=== PATIENT | female | born 1930 | race Caucasian/White ===

== ENCOUNTER 2017-08-22 08:58 | Emergency (ER) | payer MEDICARE, MEDICAID ==
[2017-08-22 10:04] LABS: Troponin I 0.013 ng/mL (< 0.028)
[2017-08-22] MEDS ORDERED: Haloperidol Lactate 5 MG/ML VIAL ONE ×2 (10:48→10:53)
[2017-08-22 11:13] LABS: #Basophils 0.1 thou/uL (0.0-0.2); #Eosinphils 0.3 thou/uL (0.0-0.7); #Lymphocytes 2.6 thou/uL (1.20-3.40); #Monocytes 1.1 thou/uL (0.11-0.59); #Neutrophils 7.4 thou/uL (1.40-6.50); %Basophils 0.9 % (0.0-1.0); %Eosinophils 2.6 % (0.0-10.0); %Lymphocytes 22.6 % (21.0-51.0); %Monocytes 9.7 % (0.0-10.0); %Neutrophils 64.2 % (42.0-75.0); Hemoglobin 13.1 g/dL (12.0-16.0); Mean Corpuscular HGB CONC 32.7 g/dL (32.0-36.0); Mean Corpuscular Hemoglobin 30.1 pg (27.0-31.0); Mean Corpuscular Volume 92.1 fl (81.0-99.0); Mean Platelet Volume 7.1 fL (7.4-10.4); Platelet Count 293 thou/uL (130-400); RBC Distribution Width 13.9 % (11.5-14.5); Red Blood Cell (RBC) Count 4.34 mill/uL (4.20-5.40); White Blood Cell (WBC) Count 11.6 thou/uL (4.8-10.8)
[2017-08-22 11:38] LABS: Anion Gap 17 mmol/L (10-20); BUN (Urea Nitrogen) 9 mg/dL (9.8-20.1); Calc. Creatinine Clearance 0 mL/min (70-130); Carbon Dioxide 24 mmol/L (23-31); Chloride 101 mmol/L (98-107); Estimated GFR-MDRD 72; Glucose 128 mg/dL (83-110); Potassium 4.7 mmol/L (3.5-5.1); Sodium 137 mmol/L (136-145)
--- NOTE | 2017-08-22 12:03 | RAD ---
ONE VIEW CHEST: History: Pain. Comparison: 08-22-17 at 5:37 a.m. FINDINGS: Slight elongation of the aorta. Normal cardiac silhouette. The pulmonary vessels are still prominent. There appears to be improved aeration of the lung parenchyma. There is still evidence of diminished lung volumes, likely due to poor inspiratory effort. There is no pneumothorax. Stable osteopenic cooper ges. IMPRESSION: Slightly improved aeration of lung parenchyma. POS: [facility]
--- NOTE | 2017-08-22 12:10 | CT ---
NONCONTRAST HEAD CT: Comparison: 06-25-17 History: Dementia. Altered mental status. Technique: Noncontrast head CT is performed from skull base to skull vertex. FINDINGS: No parenchymal hemorrhage. No extraaxial hematoma. No midline shift. Basilar cistern is patent. Age a ppropriate atrophy. Cortical fletcher white matter differentiation preserved. Ventricles and sulci are patent and symmetric. 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 Stable malacic changes involving both occipital lobes. Hyperostosis frontalis interna is noted. Stable mucosal disease of the sinuses. Cavernous atheroscler osis identified. IMPRESSION: 1. No acute intracranial process. POS: [facility]
== END 2017-08-22 15:46 | disposition home or self-care (01) ==
LOC: ERS 08:58
DX: R07.9 Chest pain, unspecified (principal); F03.90 Unspecified dementia, unspecified severity, without behavioral disturbance, psychotic disturbance, mood disturbance, and anxiety; I12.9 Hypertensive chronic kidney disease with stage 1 through stage 4 chronic kidney disease, or unspecified chronic kidney disease; E11.22 Type 2 diabetes mellitus with diabetic chronic kidney disease; N18.9 Chronic kidney disease, unspecified; R00.0 Tachycardia, unspecified; I25.10 Atherosclerotic heart disease of native coronary artery without angina pectoris; I25.2 Old myocardial infarction; K21.9 Gastro-esophageal reflux disease without esophagitis; E78.5 Hyperlipidemia, unspecified; E66.9 Obesity, unspecified; J44.9 Chronic obstructive pulmonary disease, unspecified; F41.9 Anxiety disorder, unspecified; Z86.73 Personal history of transient ischemic attack (TIA), and cerebral infarction without residual deficits; Z79.84 Long term (current) use of oral hypoglycemic drugs; Z79.899 Other long term (current) drug therapy; Z85.43 Personal history of malignant neoplasm of ovary
CPT/HCPCS: 36415; 70450; 71045; 93005; 96372; J1630